=== PATIENT | male | born 1945 | race Caucasian/White ===

== ENCOUNTER 2017-03-25 00:45 | Day surgery (SDC) | payer MEDICARE ==
[2017-03-25] VITALS (24 sets, daily range): BP systolic 104–138; BP diastolic 58–88; PULSE 54–66; RESP 12–21; O2SAT 96–100
[~2017-03-25] VITALS: Ht 182.9 cm; Wt 86.3 kg
[~2017-03-25 00:45] MED LIST: FINA5TAB2 PO; SIMV20TA4 PO; TAMS0.4C98 PO
[2017-03-25] MEDS ORDERED: Benzoc-Butamben-Tetraca Spray 20 Gm Spray TOPICAL ONE (06:00)
[2017-03-25] MEDS ORDERED: 0.9% Sodium Chloride 1,000 ML IV SCH (06:15)
[2017-03-25] MEDS ORDERED: TRIA430O2 TP (07:02)
[2017-03-25] MEDS ORDERED: fentaNYL PF 50 mCg/mL 5 mL Inj IVPUSH PRN (07:05)
[2017-03-25] MEDS ORDERED: INUL1TAB4 PO (08:12)
[2017-03-25] MEDS ORDERED: LACT1CAP65 PO (08:12)
--- NOTE | 2017-03-25 08:13 | NUR ---
Admit [facility]ICIO Admitted to [facility] about 0730. VSS. Tele SB with 1st degree AVB. IVs started and labs sent. Procedure and recovery reviewed and verbalizes understanding. Awaiting MD and Echo.
[2017-03-25 08:15] LABS: BASOPHILS % (AUTO) 0.8 % (0-3); EOSINOPHILS % (AUTO) 6.9 % (0-5); Mean Corpuscular Hemoglobin 29.8 pg (27.0-35.0); Mean Corpuscular Volume 89.6 fL (81-100); NEUTROPHILS % (AUTO) 54.3 % (40-74); Platelet Count 171 bil/L (150-400)
[2017-03-25] MEDS ORDERED: Heparin 10,000 Unit/1,000 mL NS Premix IV ONE (08:17)
[2017-03-25] MEDS ORDERED: Heparin 1,000 Units/500 mL NS Premix IV ONE (08:17)
[2017-03-25] MEDS ORDERED: 0.9% Sodium Chloride 50 ML ONE (08:21)
[2017-03-25] MEDS ORDERED: fentaNYL-PF 50 mCg/mL 2 mL Inj ONE ×2 (08:27→09:54)
[2017-03-25] MEDS ORDERED: Flumazenil 0.1 mg/mL 5 mL Inj IV ONE (08:27)
[2017-03-25 08:30] LABS: INR 0.93 ratio
--- NOTE | 2017-03-25 09:49 | NUR ---
MALIKA/laboratory technician MALIKA commenced about 949, See EMR for VS and medication administration. VSS. No complications. Tolerated well. Complete about 919. Returned to baseline by 929. To laboratory technician about 949.
[2017-03-25] MEDS ORDERED: 0.9% Sodium Chloride 0 ML ONE (10:29)
[2017-03-25] MEDS ORDERED: Adenosine Inj 20 ML IV ONE ×2 (10:29→10:31)
[2017-03-25] MEDS ORDERED: 0.9% Sodium Chloride 100 ML ONE (10:30)
[2017-03-25] MEDS ORDERED: Heparin 1,000 Unit/mL 10 mL Inj ONE (10:46)
[2017-03-25] MEDS ORDERED: Nitroglycerin 50,000 mcg/250 mL D5W Premix IV ONE (10:58)
[2017-03-25] MEDS ORDERED: 0.9% Sodium Chloride 250 ML BOLUS IV PRN (12:35)
[2017-03-25] MEDS ORDERED: Atropine 1 mg/10 mL (Code) Syringe IVPUSH PRN (12:35)
[2017-03-25] MEDS ORDERED: Sodium Chloride LOK Flush 10 mL Syringe IVFLUSH PRN (12:35)
[2017-03-25] MEDS ORDERED: 0.9% Sodium Chloride 400 ML (4 HRS) IV ONE (12:35)
[2017-03-25] MEDS ORDERED: Ondansetron 2 mg/mL 2 mL Inj IVPUSH PRN (12:35)
--- NOTE | 2017-03-25 15:05 | NUR ---
Received/Recovery Received from laboratory animal caretaker at 1145. VSS. Fullness in groin present but no hematoma, soft. laboratory animal caretaker and MD aware and assessed. Unchanged to this point. Tele SB-SR with 1st degree AVB. Denies pain. States mild soreness in groin with palpation. Post cath IVF infusing per order. Assisted to Void 300cc per urinal. Taking po well. See EMR for further assessment. Care Transferred to Uche Judge RN.
--- NOTE | 2017-03-25 16:19 | CS94 ---
[address] [address] DIAGNOSTIC CARDIAC CATHETERIZATION PATIENT: CHICO SOLORIO : 1945 MR#: [id number] ADMIT: 03/25/2017 JOB ID: [id number] PROCEDURE NOTE--CARDIAC CATHETERIZATION LABORATORY: SERVICE DATE: Saturday, March 25, 2017 INSOLE TACK PULLER HAND: Jose Orozco M.D. PROCEDURES: 1. Coronary angiogram. 2. Left heart catheterization (LHC)--pressure measurement; and LVG (left ventriculogram). 3. Percutaneous coronary intervention (PCI)--diagnostic; FFR of mid LAD. CLINICAL DETAILS: This 71-year-old man presents to the cardiac catheterization laboratory for evaluation and consideration of mitral valve repair for recently identified severe but asymptomatic mitral regurgitation due to posterior leaflet prolapse. ECG is unremarkable except for marked first degree heart block. Echocardiogram shows left ventricular enlargement and intact but borderline global LV systolic function with ejection fraction estimated 55%-60%. Note prolapse of posterior mitral valve leaflets; and pulmonary hypertension with estimated PASP 61 mmHg. MALIKA echo was accomplished prior to the catheterization procedure showing marked prolapse of the posterior P2 segment. PROCEDURAL DETAILS: Prior to the catheterization laboratory, I discussed the procedure including possible risks and complications with the patient and his . We discussed possible risks and complications including bleeding, infection, blood clots; as well as injury to nerve, artery, vein or kidney; and also arrhythmia, drug reaction; or others. We discussed treatment as needed including surgery, transfusion or pacemaker. We discussed more serious complications that are possible including stroke, heart attack, , and emergency surgery including transfer for cardiac surgery. After discussion and questions, he signed informed consent to proceed. He was brought to the catheterization laboratory n.p.o. where he was prepped sterilely and draped. CORONARY ANGIOGRAM AND RIGHT HEART CATHETERIZATION: Venous access was obtained first in the right common femoral vein without difficulty using fluoroscopic localization over the femoral head and modified Seldinger technique to insert a 10 cm 8-Serbian side-arm sheath. Then arterial access was obtained without difficulty in a similar manner to insert a 10 cm 6-Serbian side-arm sheath in the right common femoral artery. Catheters were advanced and exchanged initially over a long 0.035 inch J tipped guidewire. Because of iliac tortuosity, an Amplatz superstiff wire was used to exchange for a 24 cm 6-Serbian side-arm sheath in the RFA. The right heart catheterization was accomplished using a 7-Serbian balloon tipped thermodilution Young Harris catheter which was advanced without difficulty through the right heart to the pulmonary artery wedge position. Serial right heart measurements were recorded on catheter pull back including cardiac output by AROLDO method and thermodilution. The right heart catheter was removed. Next, the left coronary artery was imaged using a 6-Serbian JL-4 diagnostic catheter. Then, the right coronary angiography was accomplished using a 6-Serbian JR-4 catheter. LEFT HEART CATHETERIZATION: A 6-Serbian pigtail catheter was advanced without difficulty across the aortic valve into the left ventricle. Pressure measurements including LVED and pullback were measured. Left ventriculogram was done in the 30 degree VILA projection using 45 cc of contrast injected at 14 cc/second. FFR OF MID LAD: The initial diagnostic coronary images were reviewed. Decision was made to proceed with diagnostic FFR to assess the tubular intermediate (50%-60%) eccentric mid LAD lesion. For FFR patient received aspirin 324 mg chewed; and procedural anticoagulation was obtained using bolus IV heparin to achieve therapeutic ACT. The left coronary artery was engaged with a 6-Serbian JL-4 guide catheter. A [employer] (SDI) pressure wire was prepared, calibrated, inserted and balanced; then passed without difficulty across the target lesion into the distal LAD. NTGIC was used. Then maximum hyperemia was obtained using a [place] IV infusion 140 mcg/kg per minute. Distally in the LAD, the lowest FFR is 0.78. On pullback during Adenosine, FFR rises slowly to 0.86 just distal to the mid LAD lesion in question. There is a step-up across the lesion to 0.92. Completion angiograms show the left coronary artery intact. Procedure without difficulty. Patient tolerated procedure well. No complications. A side-arm sheath angiogram shows adequate access for a closure device. Arterial hemostasis was obtained without difficulty using a Perclose suture. The patient is transferred in stable condition from the catheterization laboratory to the DIONICIO unit for ongoing care and anticipated discharge later today, if stable. I discussed the procedure, findings and recommendations with the patient and his ; as well as with Cardiology, Dr. Martin. FINDINGS: LMCA: Intact. Short. There is ezdd-[id number] distal atherosclerotic plaquing. LAD: Note atherosclerotic plaquing including a tubular intermediate 50%- 60% mid LAD lesion. It is somewhat eccentric. Overall, it is angiographically unimpressive. The LAD is a moderate-sized vessel that reaches the apex. Its distribution includes a large diagonal and a large branching septal manager intensive care unit. LCX: Intact. The left circumflex coronary artery is only of moderate size. There is mild atherosclerotic plaquing without angiographically significant obstruction. The LCX distribution includes a small OM-1; and a moderate-sized LPLB distally. RCA: Dominant. Note intermediate eccentric tubular lesion of proximal RPLB (60%-70%). The RCA distribution includes small PDA and a qidnvyyq-ux-ugcve sized RPLV and a very large RV branch. LVG: Left ventriculogram shows upnupvig-cf-csmzlt LV dilatation; and angiographically severe MR (the left atrium fills progressively until it is more darkly opacified than the LV); and suggestion of posterior mitral prolapse. LV global systolic function appears mildly borderline to mildly hypokinetic although calculated EF is 60%. LHC: LVED 23 mmHg; no systolic gradient on pullback across the aortic valve. RIGHT HEART CATHETERIZATION: PAW 25 mean (827 NV 56!). PA 50/20 (mean 30). RV 50/13. RA 10 (mean). AROLDO cardiac output 4.8 (index 2.3). Thermodilution cardiac output 5.1 (index 2.4). FA saturation 97%. PA saturation 67%. Oximeter saturation 95% (room air). On hold. CONCLUSIONS: 1. Coronary angiogram--note intermediate lesions of mid LAD; and of RPLB. 2. Severe mitral regurgitation with dilated left ventricle with borderline global systolic function. 3. FFR of LAD--physiologically significant FFR findings; likely due in part to diffuse disease; and not convincing for a significant lesion at the mid LAD. 4. Hemodynamics: Note substantially elevated intracardiac pressures including elevated LVED; elevated PAW (with a very large V-wave consistent with mitral regurgitation); and acdr-ij-qiccazkt pulmonary hypertension with PASP 50 mmHg. RECOMMENDATION: COMMENT: The catheterization confirms severe mitral regurgitation with left ventricular systolic function that is not vigorous and at least moderately abnormal hemodynamics. The lesions in RPLB and mid LAD can be reviewed for consideration of bypass; but they are angiographically not severe. The FFR suggest ischemia in the whole LAD; but there is only a smaller step-up across the mid LAD lesion.
--- NOTE | 2017-03-25 17:33 | DRSVH ---
Formerly [facility] [address] [place] [place] [address] Echocardiogram Report Name: CHICO SOLORIO TStudy Da te: 03/25/2017 Height: 72 in Hospital Exam Location: [facility] Weight: 194 lb Gender: Male BSA: 2.1 m2 : 1945 Age: 71 yrs BP: 114/80 mmHg Reason For Study: Mitral Valve- Regurgitation Ordering Physician: Performed By: Raphael Chinchilla Interpretation Summary The left ventricle is mild-moderately dilated. Left ventricular systolic function is low normal with the ejection fraction visually estimated to be 55 -60% without focal wall motion abnormalities. The right ventricle is normal size and right ventricular systolic function is at the lower limits of normal. The left atrium is severely dilated and the interatrial septum appears intact with no evidence for an atrial septal defect with no Doppler evidence for an interatrial shunt. The mitral valve leaflets appear mildly thickened, but open well. 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 Flow reversal noted in pulmonary veins consistent with severe mitral regurgitation. There is no other significant valvular heart disease. Procedure: Informed consent for Transesophageal Echocardiogram, and use of a contrast agent as needed, was obtained prior to the procedure. The patient was brought to the [facility] in a fasting state. An intravenous line was placed. A topical anesthetic agent was used for oropharangeal anesthesia. A bite block was inserted. IV concious sedation was administered using versed and demerol. A 2D transesophageal echocardiogram with spectral and color flow Doppler was performed. The procedure was performed by both myself and Dr. Jose Orozco with me supervising. The patient was in normal sinus rhythm during the exam. There were no complications. Left Ventricle: The left ventricle is mild-moderately dilated. There is normal left ventricular wall thickness. Left ventricular systolic function is normal without focal wall motion abnormalities. The ejection fraction is estimated to be 55-60%. Right Ventricle: The right ventricle is normal size. Right ventricular systolic function is at the lower limits of normal. Atria: The left atrium is severely dilated. The interatrial septum is intact with no evidence for an atrial septal defect. There is no Doppler evidence for an interatrial shunt. Mitral Valve: The mitral valve leaflets appear mildly thickened, but open well. The anterior leaflet appears normal. 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 There is severe mitral regurgitation. There is an eccentric jet of mitral regurgitation that is directed anteromedially. Flow reversal noted in pulmonary veins consistent with significant mitral regurgitation. Aortic Valve: The aortic valve is normal in structure and function. The aortic valve is trileaflet. The aortic valve opens well. No aortic regurgitation is present. Tricuspid Valve: The tricuspid valve is not well visualized, but is grossly normal. There is trace tricuspid regurgitation. Pulmonic Valve: There is no other significant valvular heart disease. Great Vessels: The ascending aorta is normal in size. The aortic arch is normal in size. Pericardium/ Pleura: There is no pericardial effusion. There is no pleural effusion. Reading Physician:05:32 PM
== END 2017-03-25 23:59 | disposition home or self-care (01) ==
LOC: SOUO 00:45
PROVIDERS: ATTEND Specialist
DX: I34.0 Nonrheumatic mitral (valve) insufficiency (principal); I34.1 Nonrheumatic mitral (valve) prolapse; I25.10 Atherosclerotic heart disease of native coronary artery without angina pectoris; I27.2 Other secondary pulmonary hypertension
CPT/HCPCS: 36415; 80048; 85025; 85610; 93005; 93460; 93571; 99152; 99153; C1760; C1769; C1887; C8925; J0153; J1200; J1644; J2250; J3010; J7030; Q9967